=== PATIENT | male | born 1975 | race Caucasian/White ===

== ENCOUNTER 2023-03-06 08:34 | Outpatient (RCR) | payer OTHER, SELFPAY ==
--- NOTE | 2023-02-25 10:48 | URNOTE ---
Request received for authorization for Rituxan (J9312). Prior authorization is approved by [facility] from 02/23/2023 to 02/23/2024 Ref #[id number].
[2023-03-06 08:49] VITALS: BP 116/70; PULSE 72; RESP 16; TEMP 36.7; O2SAT 96
[2023-03-06] MEDS: diphenhydrAMINE 25 MG CAPSULE 50 MG PO (09:05)
[2023-03-06] MEDS: ACETAMINOPHEN 325 MG TABLET 650 MG PO (09:05)
== END 2023-09-02 23:59 | disposition home or self-care (01) ==
LOC: CCIC 08:34
PROVIDERS: Visit Provider Clinical Nurse Specialist
DX: D47.9 Neoplasm of uncertain behavior of lymphoid, hematopoietic and related tissue, unspecified (principal)
CPT/HCPCS: 96413; 96415; A9270; J7030; J9312

== ENCOUNTER 2024-02-19 08:20 | Outpatient (RCR) | payer OTHER, SELFPAY ==
--- NOTE | 2024-01-13 15:11 | ONC.NURNOTE ---
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
--- NOTE | 2024-01-29 10:03 | URNOTE ---
Request received for authorization for Rituximab (Truxima) ([id number]). Prior authorization is approved by [facility] from 02/15/2024 to 02/14/2025, Ref# [id number].
[2024-02-19 08:35] VITALS: BP 112/61; PULSE 62; RESP 14; TEMP 36.3; O2SAT 98
[2024-02-19] MEDS: ACETAMINOPHEN 325 MG TABLET 650 MG PO (09:00)
[2024-02-19] MEDS: diphenhydrAMINE 25 MG CAPSULE 50 MG PO (09:00)
[2024-02-19] MEDS: 0.9 % SODIUM CHLORIDE 250 ml IV (09:15)
[2024-02-19] MEDS: SODIUM CHLORIDE 0.9 % (FLUSH) 10 ML SYRINGE IVF (09:30)
[2024-02-19] MEDS: [UNRECOGNIZED DRUG - OTHER] IV (09:31)
[2024-02-19] MEDS: RITUXIMAB ABBS IV (09:31)
[2024-02-19] MEDS: TUBING PRIMARY IV (09:31)
[2024-02-19 10:05] VITALS: BP 136/84; PULSE 70; RESP 16; TEMP 36.4; O2SAT 100
[2024-02-19 10:36] VITALS: BP 147/85; PULSE 69; RESP 18; TEMP 36.7; O2SAT 100
[2024-02-19 11:00] VITALS: BP 129/76; PULSE 70; RESP 18; TEMP 36.4; O2SAT 99
[2024-02-19 12:11] VITALS: BP 134/85; PULSE 68; RESP 16; TEMP 36.6; O2SAT 100
== END 2024-08-17 23:59 | disposition home or self-care (01) ==
LOC: CCIC 08:20
PROVIDERS: Visit Provider Clinical Nurse Specialist
DX: D47.9 Neoplasm of uncertain behavior of lymphoid, hematopoietic and related tissue, unspecified (principal)
CPT/HCPCS: 96413; 96415; A9270; J7030; J7050; Q5115

== ENCOUNTER 2025-02-13 08:20 | Outpatient (RCR) | payer OTHER, SELFPAY ==
--- NOTE | 2025-01-26 12:44 | URNOTE ---
Request received for authorization for Rituximab (Truxima) (Q5115). Prior authorization is approved by [facility] from 02/15/2024 to 02/14/2025, Ref# [id number]. Called RepDeidre Smith 01/25/25 [id number], Approval is active and not dose or frequency specific as services are based on medical necessity and follow Medicare guidelines.
[2025-02-13 08:34] VITALS: BP 128/79; PULSE 66; RESP 14; TEMP 36.6; O2SAT 99
[2025-02-13] MEDS: ACETAMINOPHEN 325 MG TABLET 650 MG PO (08:50)
[2025-02-13] MEDS: TUBING PRIMARY IV (09:18)
[2025-02-13] MEDS: RITUXIMAB ABBS IV (09:18)
[2025-02-13] MEDS: [UNRECOGNIZED DRUG - OTHER] IV (09:18)
== END 2025-08-12 23:59 | disposition home or self-care (01) ==
LOC: CCIC 08:20
PROVIDERS: Visit Provider Clinical Nurse Specialist
DX: D47.9 Neoplasm of uncertain behavior of lymphoid, hematopoietic and related tissue, unspecified (principal); D89.9 Disorder involving the immune mechanism, unspecified
CPT/HCPCS: 96413; 96415; A9270; J7030; Q5115